=== PATIENT | male | born 1985 | race African-American/Black ===

== ENCOUNTER 2017-11-14 07:58 | Emergency (ER) | payer MEDICAID ==
[~2017-11-14] VITALS: Ht 190.5 cm; Wt 82.0 kg
[2017-11-14] MEDS ORDERED: IBUPROFEN 600MG TABLET PO ONE (11:00)
[2017-11-14 11:03] VITALS: BP 129/78
[2017-11-14] MEDS ORDERED: ACETAMINOPHEN 500MG TABLET PO ONE (11:15)
== END 2017-11-14 12:53 | disposition home or self-care (01) ==
LOC: ER 07:58
DX: M25.511 Pain in right shoulder (principal); F17.210 Nicotine dependence, cigarettes, uncomplicated
CPT/HCPCS: 73030; 99284

== ENCOUNTER 2021-09-03 16:02 | Emergency (ER) | payer OTHER ==
[~2021-09-03] VITALS: Ht 188 cm; Wt 91.0 kg
[~2021-09-03 16:02] MED LIST: KEPP500 MT; [UNRECOGNIZED DRUG - CODE] PO
[2021-09-03] MEDS ORDERED: LEVETIRACETAM 1000MG PREMIX 100 ML IV ONE (16:30)
[2021-09-03] MEDS ORDERED: ACETAMINOPHEN 325MG TABLET PO ONE (16:30)
[2021-09-03 16:55] LABS: BASOPHILS % 0.2 % (0.0-2.0); EOSINOPHILS % 0.6 % (0.0-5.0); HEMATOCRIT. 43.2 % (42.0-52.0); HEMOGLOBIN. 14.3 g/dL (14.0-18.0); LYMPHOCYTES % 9.9 % (20.0-50.0); MEAN CORPUSCULAR HEMOGLOBIN 29.2 pg (28.0-32.0); MEAN CORPUSCULAR VOLUME 88.1 fL (80.0-94.0); MEAN PLATELET VOLUME 6.8 fl (7.4-10.4); MONOCYTES % 4.6 % (2.0-8.0); NEUTROPHILS % 84.7 % (40.0-76.0); PLATELET 224 x1000/uL (130-400); RED BLOOD CELL COUNT 4.91 mill/uL (4.7-6.1); RED CELL DISTRIBUTION WIDTH 13.8 % (11.6-14.6)
[2021-09-03] MEDS ORDERED: SODIUM CHLORIDE 0.9% 1,000 ML IV ONE (17:00)
[2021-09-03 17:01] LABS: CHLORIDE 104 mEq/L (98-107)
[2021-09-03 17:12] LABS: ETHANOL BLOOD < 10 mg/dL
[2021-09-03] MEDS ORDERED: LORAZEPAM 2MG/ML CPJ IV ONE (17:15)
[2021-09-03] MEDS ORDERED: KEPP500 MT (20:49)
[2021-09-03 22:05] VITALS: BP 105/76
== END 2021-09-03 22:05 | disposition home or self-care (01) ==
LOC: ER 16:02
DX: G40.909 Epilepsy, unspecified, not intractable, without status epilepticus (principal); S00.12XA Contusion of left eyelid and periocular area, initial encounter; F12.10 Cannabis abuse, uncomplicated; W01.0XXA Fall on same level from slipping, tripping and stumbling without subsequent striking against object, initial encounter; Y93.89 Activity, other specified; Y92.488 Other paved roadways as the place of occurrence of the external cause
CPT/HCPCS: 36415; 70450; 70486; 80053; 80320; 82542; 85025; 96365; 96375; 99291; J1953; J2060; J7030; G0480